=== PATIENT | female | born 2000 | race Caucasian/White ===

== ENCOUNTER 2021-10-08 12:16 | Emergency (ER) | payer OTHER ==
[2021-10-08] MEDS ORDERED: cefTRIAXone\\ROCEPHIN 500 MG VIAL ONE (12:55)
[2021-10-08] MEDS ORDERED: Lidocaine 1% (PF) 30 ML VIAL ONE (12:55)
[2021-10-08] MEDS ORDERED: Lidocaine 1% PF 5 ML VIAL ONE (12:56)
== END 2021-10-08 13:10 | disposition home or self-care (01) ==
LOC: ERS 12:16
DX: A54.9 Gonococcal infection, unspecified (principal); A74.9 Chlamydial infection, unspecified; L73.9 Follicular disorder, unspecified; F17.290 Nicotine dependence, other tobacco product, uncomplicated
CPT/HCPCS: 96372; 99283; J0696; J2001

== ENCOUNTER 2021-12-19 22:13 | Emergency (ER) | payer OTHER | END 2021-12-19 23:29 | disposition home or self-care (01) | LOC: ERS 22:13 | DX: J02.0 Streptococcal pharyngitis (principal); F17.290 Nicotine dependence, other tobacco product, uncomplicated; Z20.822 Contact with and (suspected) exposure to COVID-19 | CPT/HCPCS: 87430; 99283; U0003; U0005 ==

== ENCOUNTER 2022-01-03 16:59 | Emergency (ER) | payer OTHER | END 2022-01-03 17:59 | disposition home or self-care (01) | LOC: ERS 16:59 | DX: R21 Rash and other nonspecific skin eruption (principal); F17.290 Nicotine dependence, other tobacco product, uncomplicated | CPT/HCPCS: 99282 ==